=== PATIENT | female | born 2000 | race Asian ===

== ENCOUNTER 2018-02-12 18:31 | Inpatient (IN) | payer SELFPAY ==
[~2018-02-12 18:31] MED LIST: Dexamethasone 20 MG/5 ML VIAL ONE; Glycopyrrolate 0.2 MG/ML 5 ML SYRINGE ONE; Ketorolac Tromethamine 30 MG/ML VIAL ONE; Ondansetron HCl/PF 4 MG/2 ML Vial ONE; PROPOFOL 200 MG/20 ML VIAL ONE
[2018-02-12 19:07] LABS: #Eosinphils 0.1 thou/uL (0.0-0.7); #Lymphocytes 1.4 thou/uL (1.20-3.40); #Monocytes 0.5 thou/uL (0.11-0.59); #Neutrophils 5.4 thou/uL (1.40-6.50); %Basophils 0.6 % (0.0-1.0); %Eosinophils 0.9 % (0.0-10.0); %Lymphocytes 18.6 % (28.0-48.0); %Neutrophils 72.9 % (31.0-61.0); Mean Corpuscular HGB CONC 33.8 g/dL (32.0-36.0); Mean Corpuscular Hemoglobin 30.6 pg (25.0-35.0); Mean Corpuscular Volume 90.5 fL (78.0-98.0); Mean Platelet Volume 6.6 fL (7.4-10.4); Platelet Count 325 thou/uL (130-400); RBC Distribution Width 12.1 % (11.5-14.5); White Blood Cell (WBC) Count 7.4 thou/uL (4.8-10.8)
[2018-02-12 19:28] LABS: ALT (SGPT) 12 U/L (8-55); AST (SGOT) 21 U/L (5-30); Albumin 4.5 g/dL (3.5-5.0); Alkaline Phosphatase 56 U/L (40-150); Anion Gap 14 mmol/L (10-20); BUN (Urea Nitrogen) 13 mg/dL (8.4-21.0); Bilirubin, Total 0.7 mg/dL (0.2-1.2); Calc. Creatinine Clearance 0 mL/min (70-130); Calcium 9.9 mg/dL (7.8-10.44); Carbon Dioxide 23 mmol/L (22-29); Chloride 104 mmol/L (98-107); Estimated GFR-MDRD 89; Globulin 3.7 g/dL (2.4-3.5); Glucose 84 mg/dL (70-105); Potassium 3.6 mmol/L (3.5-5.1); Protein, Total 8.2 g/dL (6.0-8.3); Sodium 137 mmol/L (136-145)
[2018-02-12] MEDS ORDERED: Bupivacaine HCl 0.5%/Epinephrine 1:200,000/PF 30 ml Vial ONE (21:04)
--- NOTE | 2018-02-12 21:36 | ULT ---
PELVIC ULTRASOUND WITH HUYNH SCALE AND DOPPLER COLOR FLOW IMAGING TRANSABDOMINAL AND TRANSVAGINAL PELVIC ULTRASOUND PERFORMED 02/12/18 CLINICAL HISTORY: Positive beta HCG with pelvic pain, progressive in intensity. Reference is made to a recent pelvic ultrasound from [facility], 02/12/18. FINDINGS: The left ovary is not visualized. There is a moderate volume of free fluid within the pelvis, compone nt of which does reveal complex echogenicity. Within the right adnexa, there is an oval shaped complex hypoechoic mass which measures slightly grea ter than 4 cm in diameter. There is a rim of vascularity about its periphery although no significant, internal discernible flow by doppler evaluation. Thin rim of surrounding ovarian stroma is seen abou t this finding to indicate location within the ovary as the favored site of origin. Traversing bowel within the pelvis does limit sonographic visualization. There is no evidence of an intrauterine gestation. The endometrial stripe measures approximately 5 mm . IMPRESSION: 1. Complex right adnexal mass which is nonspecific. The patient does have a reported positive be ta HCG and there is absence of a detectable intrauterine gestation. Therefore, the diagnosis of exclu humaira is an ectopic ; however, this finding may relate to a complex, hemorrhagic ovarian cyst . This will require urgent clinical attention, as well as followup with serial beta HCG values and im aging followup. 2. There is a moderate volume of complex free pelvic fluid, which could be on the basis of hemor rhagic fluid, or alternatively other source for complex free pelvic fluid, i.e. infectious/inflammato ry etiologies. 3. Nonvisualization of left ovary for comment. Code T POS: [id number]
[2018-02-12] MEDS ORDERED: HYDROmorphone 2 MG/ML VIAL ONE (21:50)
[2018-02-12] MEDS ORDERED: Piperacillin/Tazobactam 3.375 GM VIAL ONE (23:24)
[2018-02-12] MEDS ORDERED: Meperidine HCl/PF 25 MG/ML VIAL ONE (23:54)
[2018-02-12] MEDS ORDERED: Ondansetron HCl/PF 4 MG/2 ML Vial ONE (23:54)
[2018-02-12] MEDS ORDERED: Ondansetron HCl/PF 4 MG/2 ML Vial IVP PRN (23:55)
[2018-02-12] MEDS ORDERED: Ondansetron ODT 4 MG TAB PO PRN (23:55)
[2018-02-13] MEDS ORDERED: Fentanyl 100 MCG/2 ML VIAL ONE (00:11)
--- NOTE | 2018-02-13 00:20 | HP ---
DATE OF SERVICE: 02/12/2018 CHIEF COMPLAINT: Abdominal pain. HISTORY OF PRESENT ILLNESS: This is a 17-year-old 1, para 0 who found out she was t sebastien at her primary care physician's office. The patient has had 1-week history of abdominal pain. She reports this was acute onset last and has been dull and constant with waves of severe pa in. She reports movement makes it worse and lying down and heating pad makes it feel better. She de nies any vaginal bleeding or other concerns. Her PCP sent her for a vaginal ultrasound, which reveal ed a large amount of free fluid and a mass on the right adnexa and she called Dr. Rosen who told her to send the patient to the emergency department. REVIEW OF SYSTEMS: Negative for head, eyes, ears, nose, throat, cardiovascular, respiratory, GI, , neuro, psych, musculoskeletal, skin, or constitutional symptoms other than mentioned above. PAST MEDICAL HISTORY: None. PAST SURGICAL HISTORY: None. MEDICATIONS: None. ALLERGIES: No known drug allergies. SOCIAL HISTORY: Negative for tobacco, alcohol, or drug abuse. PHYSICAL EXAMINATION: VITAL SIGNS: Afebrile with stable vital signs. Pulse in the 80s-100s. GENERAL: Awake, alert, in no distress, but appears very anxious. CHEST: Nonlabored. ABDOMEN: With voluntary guarding and tender to palpation diffusely. PELVIC: Declined. IMAGING: Transvaginal ultrasound revealed free fluid surrounding the uterus and right ovary with a c yst measuring about 4 cm with some internal echoes consistent with clot. LABORATORY DATA: Hemoglobin 11.0, hematocrit 32.6. HCG 476. ASSESSMENT AND PLAN: A 17-year-old 1 with an early and cannot rule out ectopic. T here is no obvious ectopic on ultrasound, but with large amount of free fluid in the patien t's exam findings, I would recommend proceeding with a diagnostic laparoscopy. If there is an obviou s ectopic, it will be removed. If there is an obvious source of bleeding, we will work on hemostasis . All risks, benefits, and alternatives were discussed and the patient agrees to proceed and consent s will be signed. All questions were answered.
[2018-02-13 01:16] LABS: #Lymphocytes 0.9 thou/uL (1.20-3.40); #Monocytes 0.4 thou/uL (0.11-0.59); #Neutrophils 10.6 thou/uL (1.40-6.50); %Basophils 0.2 % (0.0-1.0); %Eosinophils 0.3 % (0.0-10.0); %Lymphocytes 7.1 % (28.0-48.0); %Monocytes 3.2 % (0.0-4.0); %Neutrophils 89.2 % (31.0-61.0); Hemoglobin 10.5 g/dL (12.0-16.0); Mean Corpuscular HGB CONC 33.4 g/dL (32.0-36.0); Mean Corpuscular Hemoglobin 30.9 pg (25.0-35.0); Mean Corpuscular Volume 92.4 fL (78.0-98.0); Mean Platelet Volume 6.4 fL (7.4-10.4); Platelet Count 255 thou/uL (130-400); RBC Distribution Width 11.9 % (11.5-14.5); White Blood Cell (WBC) Count 11.9 thou/uL (4.8-10.8)
--- NOTE | 2018-02-13 01:28 | OP ---
DATE OF PROCEDURE: 02/12/2018 PREOPERATIVE DIAGNOSIS: Ovarian cyst early . POSTOPERATIVE DIAGNOSES: Ovarian cyst early with gangrenous appendicitis. PROCEDURE: Laparoscopic video appendectomy. I was called for intraoperative consult by Dr. Gila norris who initiated the laparoscopy and I completed laparoscopic appendectomy. ANESTHESIA: General. Local of 0.5% Marcaine with epinephrine, 30 mL. PROCEDURE IN DETAIL: The patient was taken to the operating room where under general anesthesia, Dr. Chow performed a laparoscopy, I was called in the bonbon cream warmer hours when she discovered a gangr enous appendix. On my arrival, she had two [address] and I placed a suprapubic port throug h a suprapubic incision, 12-port under laparoscopic visualization. Mesoappendix taken down with the LigaSure. Stump of the appendix divided with Endo blue load SEAN stapler. Stapled with cecal stump w as hemostatic, after clips applied. The abdominal cavity irrigated and irrigant evacuated. Hemostas is noted. Skin incisions closed with 4-0 Monocryl. Patient tolerated the procedure well without any complications.
--- NOTE | 2018-02-13 02:10 | OP ---
DATE OF SERVICE: 02/12/2018 PREOPERATIVE DIAGNOSES: 1. Suspected hemoperitoneum. 2. Early . POSTPROCEDURE DIAGNOSES: 1. Suspected hemoperitoneum. 2. Early . 3. Gangrenous appendicitis. PROCEDURE: Diagnostic laparoscopy with appendectomy. SURGEON: Gila Chow M.D. TOWN JUSTICE: Dr. Jimena De La Torre, family psychologist. INTRAOPERATIVE CONSULT: Dr. Dillan Dodge, general surgery. ANESTHESIA: General endotracheal. COMPLICATIONS: None. ESTIMATED BLOOD LOSS: 10 mL. FINDINGS: Normal appearing left tube and ovary, right ovary enlarged with adherent clot, right tube appeared inflamed but with no obvious ectopic . Uterus appeared normal. Normal appearing liver edge, appendix visualized, and appeared gangrenous and inflamed. There was about 200 mL of pau t in the abdomen, but no fresh appearing blood. DESCRIPTION OF PROCEDURE: The patient was taken to the operating room, where general anesthesia was obtained without difficulty. She was prepared and draped in the normal sterile fashion in the dorsal lithotomy position with Yellofin leg holders. A Burton catheter was placed and sponge stick was plac ed in the vagina. Attention was turned to the abdomen, where a 5 mm infraumbilical incision was made with a scalpel. A Veress needle was placed and the abdomen was insufflated with CO2 gas. The Veres s needle was removed and the 5 mm trocar was advanced using the Visiport with direct visualization. The patient was placed in Trendelenburg and a second 5-mm port was placed in the left lower quadrant. The clot was suctioned with suction gear lapping machine operator. The adherent clot was removed from the tube and ova ry on the right side, and a hemostatic lesion was noted on the ovary, which may have been the source of bleeding. Again, this was hemostatic and not actively bleeding. The right tube appeared inflamed , but with no obvious ectopic or mass. It was immediately next to the gangrenous-appearing appendix. At this time, Dr. Dodge was called who came in for appendectomy. Please see his dictate d note for details of that operation. CO2 gas was then removed from the abdomen as well as all troca rs. The fascia of the third port that was placed by Dr. Dodge was closed. The skin was reapproxima janet with 4-0 Monocryl. Lidocaine was used for local anesthetic and the sites of the ports. The jm ent tolerated the procedure well. Sponge, lap, and needle counts correct x2. The patient was taken to recovery room in stable condition.
[2018-02-13] MEDS: HYDROcodone/Acetaminophen 5/325 mg Tablet PO PRN ×5 (04:07→21:13)
[2018-02-13] MEDS: Piperacillin/Tazobactam 3.375 GM in Sodium Chloride 0.9% 100 ML IVPB SCH ×3 (05:28→16:57)
--- NOTE | 2018-02-13 08:14 | PDOC.EVN ---
Event Note - Event Note Event Note: S: Feeling much better this morning. Pain much improved. Denies any significant complaints. O: AFVSS Gen - aao, nad Chest - nonlabored Abd - soft, appropriately TTP, no rebound or guarding Labs Laboratory Results - last 24 hr 02/12/18 02/13/18 19:00 01:02 WBC 11.9 H RBC 3.40 L Hgb 10.5 L Hct 31.4 L MCV 92.4 MCH 30.9 MCHC 33.4 RDW 11.9 Plt Count 255 MPV 6.4 L Neutrophils % 89.2 H Lymphocytes % 7.1 L Monocytes % 3.2 Eosinophils % 0.3 Basophils % 0.2 Neutrophils # 10.6 H Lymphocytes # 0.9 L Monocytes # 0.4 Eosinophils # 0.0 Basophils # 0.0 Blood Type O POSITIVE Antibody Screen NEGATIVE Crossmatch See Detail A/P: 17 y/o G1 at unknown gestation s/p dx laparoscopy with appendectomy 1. Gangrenous appendicitis - s/p appendectomy by Dr. Dodge. Will continue Zosyn. 2. - still early, no obvious ectopic on laparoscopy. Will repeat hCG level tomorrow at 1900 (48 hours after first)
--- NOTE | 2018-02-13 09:45 | PRG ---
DATE OF SERVICE: 02/13/2018 Ms. Sagastume is doing well today. She has not tried liquids yet; however, it is early. She does not borjas ve any nausea or vomiting. PHYSICAL EXAMINATION: LUNGS: Clear to auscultation. CARDIAC: Regular rate and rhythm without murmur or gallop. ABDOMEN: Soft, nontender, nondistended. Bowel sounds present. Laparoscopic wounds healthy without problems. VITAL SIGNS: Temperature 98.7 degrees, heart rate 89, 94/50. LABORATORY DATA: None this morning postoperatively. ASSESSMENT AND PLAN: The patient is doing well. I would recommend intravenous antibiotics today and probably discharge home tomorrow on Augmentin for 5 days. She can follow up in my office in 5-7 day s. Post discharge diet and activity as tolerated. No lifting restrictions. No activity restriction s. She will be sore. She can take Tylenol for pain, of course, avoiding NSAIDs due to her recently diagnosed . Follow up per per Dr. Gila Chow.
[2018-02-13] MEDS: Simethicone Chewable 80 MG TAB PO PRN (18:48)
[2018-02-13] MEDS: Acetaminophen 500 MG TAB PO PRN (21:15)
[2018-02-14] MEDS: Piperacillin/Tazobactam 3.375 GM in Sodium Chloride 0.9% 100 ML IVPB SCH ×2 (01:02→05:55)
[2018-02-14] MEDS: HYDROcodone/Acetaminophen 5/325 mg Tablet PO PRN ×2 (01:04→05:56)
[2018-02-14 06:03] VITALS: TEMP 98.8
[2018-02-14] MEDS: Acetaminophen 500 MG TAB PO PRN (06:05)
[2018-02-14] MEDS: Simethicone Chewable 80 MG TAB PO PRN (06:05)
[2018-02-14 08:11] VITALS: BP 95/52
--- NOTE | 2018-02-14 08:16 | DIS ---
DATE OF ADMISSION: 02/12/2018 DATE OF DISCHARGE: 02/14/2018 ADMITTING DIAGNOSES: Hemoperitoneum, positive test, concerns for possible ectopic pregnanc y. DISCHARGE DIAGNOSES: 1. A positive test. 2. Hemoperitoneum. 3. Gangrenous appendicitis. 4. Hemorrhagic ovarian cyst. HOSPITAL COURSE: The patient is a 17-year-old G1, P0 female who presented to the emergency room with a 1 week history of abdominal pain and with progressive symptoms. The patient was evaluated by Dr. Chow and taken to the operating room for suspected ectopic . Upon entry, the patient was noted to have a hemoperitoneum and a likely hemorrhagic cyst, but no evidence of ectopic and the pat ient had what appeared to be gangrenous appendicitis. Dr. Dodge was consulted intraoperatively and performed an appendectomy. The patient has been on IV Zosyn since then. Per Dr. Dodge the patient is eligible for discharge today from his standpoint with instructions to go home on Augmentin for 5 d ays. The patient reports this morning that she is feeling better. She denies any vaginal bleeding a nd pain has improved some. VITAL SIGNS: This morning, blood pressure 96/46, temperature 98.4, pulse of 80, respiratory rate of 17, satting 100% on room air. GENERAL: She appears to be in no acute distress. She is alert and oriented, cooperative and pleasan t to interact with. HEENT: Head is normocephalic, atraumatic. ABDOMEN: Soft, appropriately tender. Incisions are clean, dry, and intact. DISCHARGE INSTRUCTIONS: The patient will be discharged to home. She will have instructions follow u p with her surgeon in approximately the next 5-7 days and instructions to follow up with a primary OB within the same time frame. It is still unclear whether this is a normal intrauterine or an abnormal of some kind. Blood count will be repeated this morning though early for a 48- hour interval. The patient medications is being discharged to home on Tylenol and ibuprofen as needed for pain contr ol and again will follow up with Dr. Dodge in 5-7 days and primary OB within the next couple days fo r followup on her quantitative HCG.
--- NOTE | 2018-02-14 09:44 | DIS ---
DATE OF ADMISSION: 02/12/2018 DATE OF DISCHARGE: 02/14/2018 PRINCIPAL DIAGNOSES: 1. Gangrenous appendicitis. 2. Hemoperitoneum. 3. Suspected completed miscarriage. In brief, this was a patient who was admitted through Dr. Loving, in the Emergency Department, admit janet to the [employer] team for suspected ectopic . She was also found to have hemoperitoneum, a nd through the process of a workup for possible ectopic, was found to have a gangrenous appendicitis, removed by General Surgery. The patient was actually discharged on the morning of 02/14/[address] Miller, and this dictation is ancillary, as I evaluated the patient at bedside after she was discha rged by Dr. Miller. I evaluated the patient due to a decreasing/falling beta hCG In brief, the patient had an hCG on the 02/12/2018 of 476 and then a repeat value of 02/14/2018 was 1 73. I have explained to the patient and her family at bedside that a decrease in beta hCG of approxi mately half was suspicious for a completed miscarriage. The patient states that she has had a histor y of abnormal bleeding within the last 3 weeks that was on and off. She assumes these were "three pe riods in 1 month." Putting the history and the decreasing beta hCGs together, the diagnosis is likel y completed miscarriage. Questions were given. The patient's blood type is Rh positive, so RhoGAM i s not required. The patient does have a Family Practice practitioner in the area and advised her to follow up on Saturday rather than Saturday, which was originally discussed, now that we know that the bet a hCG is downward trending. She was advised to follow up with her provider either on Saturday or for repeat beta hCG rather than coming in on Saturday, as it will not acutely change her management. Instructions were given and patient and family understood.
== END 2018-02-14 10:05 | disposition home or self-care (01) | DRG 817 ==
LOC: ERS 18:31 → SDC/OP 21:50 → 3SE 23:55
PROVIDERS: ADMIT Obstetrics & Gynecology; ATTEND Obstetrics & Gynecology
PROC: 0DTJ4ZZ Resection of Appendix, Percutaneous Endoscopic Approach (ICD-10-PCS; principal; 2018-02-12)
DX: O34.80 Maternal care for other abnormalities of pelvic organs, unspecified trimester (principal); K66.1 Hemoperitoneum; K35.891 Other acute appendicitis without perforation, with gangrene; N83.209 Unspecified ovarian cyst, unspecified side; Z3A.00 Weeks of gestation of pregnancy not specified; O99.619 Diseases of the digestive system complicating pregnancy, unspecified trimester
CPT/HCPCS: 36415; 36430; 76856; 80053; 84702; 85025; 86850; 86900; 86901; 88304; 96360; J0670; J1100; J1170; J1885; J2175; J2405; J2543; J2704; J3010; J7050; P9016